=== PATIENT | male | born 1970 | race Caucasian/White ===

== ENCOUNTER 2017-11-09 16:37 | Emergency (ER) | payer BC ==
[2017-11-09] MEDS: IBUPROFEN 200 MG TAB PO (16:57)
== END 2017-11-09 17:09 | disposition home or self-care (01) ==
LOC: FTE 16:37
DX: R50.9 Fever, unspecified (principal); R05 Cough; J06.9 Acute upper respiratory infection, unspecified; R53.81 Other malaise
CPT/HCPCS: 99283

== ENCOUNTER 2018-11-30 09:15 | Emergency (ER) | payer BC | END 2018-11-30 11:14 | disposition home or self-care (01) | LOC: FTE 09:15 | DX: S69.92XA Unspecified injury of left wrist, hand and finger(s), initial encounter (principal); W18.39XA Other fall on same level, initial encounter; Y92.9 Unspecified place or not applicable | CPT/HCPCS: 73140; 99283-25 ==